=== PATIENT | female | born 1990 | race American Indian/Alaskan Native ===

== ENCOUNTER 2020-05-22 13:39 | Emergency (ER) | payer SELFPAY ==
[2020-05-22] MEDS ORDERED: HYDROcodone/ACETAMINOPHEN 5-325 MG TAB PO ONE (14:10)
[2020-05-22] MEDS ORDERED: IBUPROFEN 800 MG TAB PO ONE (14:10)
[2020-05-22 14:14] VITALS: BP 115/82
--- NOTE | 2020-05-22 14:14 | Emergency Department Report ---
ED General Adult HPI - General Stated complaint: FACIAL SWELLING RT SIDE Time Seen by Provider: 05/22/20 14:07 - History of Present Illness Initial comments: Pt complains of right lower dental pain and facial swelling x yesterday. Denies prior dental issues. She reports she has an appointment with a dentist next week, but the pain has worsened since awaking this morning. She rates her pain as a 9/10 in severity and states it worsens with facial movements and chewing. She denies any fever/chills/sweats, difficulty swallowing, or difficulty opening/closing her jaw. - Related Data Previous Rx's Medication Instructions Recorded Last Taken Type Acetaminophen/Codeine [Tylenol 1 tab PO Q6H PRN #8 tab 05/22/20 Unknown Rx /Codeine # 3 tab] Ibuprofen [Motrin 800 MG tab] 800 mg PO TID PRN #20 tablet 05/22/20 Unknown Rx Penicillin V Potassium 500 mg PO QID 7 Days #28 tablet 05/22/20 Unknown Rx Allergies Allergy/AdvReac Type Severity Reaction Status Date / Time No Known Allergies Allergy Unverified 05/22/20 14:09 ED Review of Systems ROS: Stated complaint: FACIAL SWELLING RT SIDE Other details as noted in HPI Constitutional: denies: chills, fever, malaise, weakness ENT: dental pain Respiratory: denies: cough, shortness of breath Skin: denies: rash, lesions Neurological: denies: headache Hematological/Lymphatic: denies: swollen glands ED Past Medical Hx - Medications Home Medications: Home Medications Medication Instructions Recorded Confirmed Last Taken Type Acetaminophen/Codeine [Tylenol 1 tab PO Q6H PRN #8 tab 05/22/20 Unknown Rx /Codeine # 3 tab] Ibuprofen [Motrin 800 MG tab] 800 mg PO TID PRN #20 tablet 05/22/20 Unknown Rx Penicillin V Potassium 500 mg PO QID 7 Days #28 tablet 05/22/20 Unknown Rx ED Physical Exam - General General appearance: alert, in no apparent distress - Head Head exam: Present: atraumatic, normocephalic - Eye Eye exam: Present: normal appearance, scleral icterus - Expanded ENT Exam Expanded Mouth exam: Absent: drooling, trismus, muffled voice Teeth exam: Present: dental caries, dental tenderness # (with mild overlying facial swelling without cellulitic changes noted ) - Neck Neck exam: Present: normal inspection. Absent: lymphadenopathy - Respiratory Respiratory exam: Absent: respiratory distress - Cardiovascular Cardiovascular Exam: Present: regular rate - Neurological Exam Neurological exam: Present: alert, oriented X3 - Psychiatric Psychiatric exam: Present: normal affect, normal mood - Skin Skin exam: Present: warm, dry, intact, normal color. Absent: rash ED Course Vital Signs 05/22/20 14:08 Temperature 98.3 F Pulse Rate 70 Respiratory 16 Rate Blood Pressure 115/82 O2 Sat by Pulse 98 Oximetry ED Medical Decision Making - Medical Decision Making Pt complains of right lower dental pain and facial swelling x yesterday. Denies prior dental issues. She reports she has an appointment with a dentist next week, but the pain has worsened since awaking this morning. She rates her pain as a 9/10 in severity and states it worsens with facial movements and chewing. She denies any fever/chills/sweats, difficulty swallowing, or difficulty opening/closing her jaw. +dental tenderness and right facial swelling noted without obvious abscess. Rx for penicillin given. Pt to follow up with her dental specialist within 2 days. Strict return precautions were discussed in detail with pt who verbalizes understanding. She is afebrile, well appearing, and stable for d/c home. Critical care attestation.: If time is entered above; I have spent that time in minutes in the direct care of this critically ill patient, excluding procedure time. ED Disposition Clinical Impression: Pain, dental Disposition: [id number] TO HOME OR SELFCARE Is pt being admited?: No Condition: Stable Instructions: Dental Abscess (ED) Prescriptions: Ibuprofen [Motrin 800 MG tab] 800 mg PO TID PRN #20 tablet PRN Reason: Pain, Moderate (4-6) Penicillin V Potassium 500 mg PO QID 7 Days #28 tablet Acetaminophen/Codeine [Tylenol /Codeine # 3 tab] 1 tab PO Q6H PRN #8 tab PRN Reason: Pain , Severe (7-10) Referrals: RUTH GOINS [Other] - 3-5 Days Forms: Work/School Release Form(ED)
== END 2020-05-22 14:42 | disposition home or self-care (01) ==
LOC: ED 13:39
DX: K08.89 Other specified disorders of teeth and supporting structures (principal)
CPT/HCPCS: 99282

== ENCOUNTER 2022-02-10 18:25 | Emergency (ER) | payer SELFPAY ==
[2022-02-10 20:25] VITALS: BP 114/73
[2022-02-10 21:03] LABS: Bilirubin,Urine NEG (Negative); Blood,Urine LG (Negative); Color,Urine Red (Yellow)
[2022-02-10 21:13] LABS: RBC,Urine > 182.0 /HPF (0.0-6.0)
== END 2022-02-10 21:00 | disposition left against medical advice (07) ==
LOC: ED 18:25
DX: N89.8 Other specified noninflammatory disorders of vagina (principal); Z53.21 Procedure and treatment not carried out due to patient leaving prior to being seen by health care provider
CPT/HCPCS: 81001